=== PATIENT | female | born 1985 | race Caucasian/White ===

== ENCOUNTER → 2018-05-02 14:45 | Outpatient (CLI) | payer OTHER, SELFPAY ==
[2018-05-02 15:36] LABS: Add Manual Diff / Slide Review NO; Basophils Percent Auto 0.1 % (0-2); Eosinophils Percent Auto 0.7 % (2-4); Hematocrit 44.1 % (36-46); Hemoglobin 15.3 g/dL (12.0-16.0); Lymphocytes Percent Auto 24.4 % (25-40); Mean Corpuscular HGB Conc 34.6 % (30-36); Mean Corpuscular Hemoglobin 32.2 PG (26-34); Monocytes Percent Auto 10.2 % (3-14); Neutrophils Absolute Auto 3400 /uL (3000-5900); Neutrophils Percent Auto 64.6 % (50-75); Platelet Count 233 X10^3/uL (150-400); Red Blood Cell Count 4.75 X10^6/uL (4.0-5.2); Red Cell Distribution Width 12.4 % (11.6-14.8); White Blood Cell Count 5.3 X10^3/uL (4.5-11.0)
[2018-05-02 16:35] LABS: Alanine Aminotransferase 33 IU/L (9-52); Albumin 4.5 g/dL (3.5-5.0); Alkaline Phosphatase 62 U/L (38-126); Aspartate Aminotransferase 29 IU/L (14-36); Bilirubin Total 0.4 mg/dL (0.2-1.3); Blood Urea Nitrogen 7 mg/dL (7-17); Calcium 9.8 mg/dL (8.4-10.2); Carbon Dioxide 27 mmol/L (22-32); Chloride 99 mmol/L (98-107); Estimated Glomerular Filt Rate > 60.0 mL/min (>60); Globulin 2.2 g/dL (1.7-4.1); Glucose 111 mg/dL (70-100); HEMOLYSIS < 15 (0-50); Potassium 4.1 mmol/L (3.4-5.1); Sodium 140 mmol/L (137-145); Total Protein 6.7 g/dL (6.3-8.2)
== END ==
PROVIDERS: Family Provider Family Medicine; PCP Family Medicine; Visit Provider Family Medicine
DX: J32.4 Chronic pansinusitis (principal); E88.81 Metabolic syndrome and other insulin resistance
CPT/HCPCS: 36415; 80053; 85025

== ENCOUNTER → 2021-05-28 09:43 | Outpatient (CLI) | payer OTHER, SELFPAY ==
[2021-05-28 18:43] LABS: Appearance Urine UA CLEAR; Bilirubin Urine UA NEGATIVE (NEGATIVE); Color Urine UA YELLOW; Glucose Urine UA NEGATIVE (Negative); Ketones Urine UA NEGATIVE (NEGATIVE); Leukocyte Esterase Urine UA 2+ (NEGATIVE); Nitrite Urine UA NEGATIVE (Negative); Occult Blood Urine UA TRACE-LYSED (Negative); Protein Urine UA NEGATIVE (Negative); Specific Gravity Urine UA 1.015 (1.000-1.035); Urobilinogen Urine UA 0.2 E.U./dL (0.2)
[2021-05-28 18:45] LABS: Add Manual Diff / Slide Review NO; Basophils Absolute Auto 0 /uL (0-100); Basophils Percent Auto 0.5 % (0-2); Eosinophils Absolute Auto 100 /uL (0-450); Eosinophils Percent Auto 1.8 % (2-4); Hematocrit 42.8 % (36-46); Hemoglobin 15.1 g/dL (12.0-16.0); Lymphocytes Absolute Auto 1300 /uL (1100-4500); Lymphocytes Percent Auto 29.6 % (25-40); Mean Corpuscular HGB Conc 35.2 % (30-36); Mean Corpuscular Hemoglobin 31.7 PG (26-34); Mean Corpuscular Volume 90.1 fL (80-100); Monocytes Absolute Auto 500 /uL (0-900); Monocytes Percent Auto 10.7 % (3-14); Neutrophils Absolute Auto 2500 /uL (1500-7000); Neutrophils Percent Auto 57.4 % (50-75); Platelet Count 230 X10^3/uL (150-400); Red Blood Cell Count 4.75 X10^6/uL (4.0-5.2); Red Cell Distribution Width 12.4 % (11.6-14.8); White Blood Cell Count 4.4 X10^3/uL (4.5-11.0)
[2021-05-28 18:56] LABS: Alanine Aminotransferase 39 IU/L (<35); Albumin 4.4 g/dL (3.5-5.0); Albumin Globulin Ratio 1.8 (1.0-2.8); Alkaline Phosphatase 50 U/L (38-126); Aspartate Aminotransferase 29 IU/L (14-36); BUN Creatinine Ratio 9.2 (6-22); Bilirubin Total 0.6 mg/dL (0.2-1.3); Blood Urea Nitrogen 7 mg/dL (7-17); Calcium 10.2 mg/dL (8.4-10.2); Carbon Dioxide 26 mmol/L (22-32); Chloride 107 mmol/L (98-107); Cholesterol 238 mg/dL (140-199); Estimated Glomerular Filt Rate > 60.0 mL/min (>60); Globulin 2.4 g/dL (1.7-4.1); Glucose 97 mg/dL (70-100); HDL Cholesterol 33 mg/dL (40-60); HEMOLYSIS < 15 (0-50); LDL Cholesterol Calculated 184 mg/dL (<100); Potassium 4.5 mmol/L (3.4-5.1); Sodium 141 mmol/L (137-145); Total Protein 6.8 g/dL (6.3-8.2); Triglycerides 106 mg/dL (35-150)
[2021-05-28 18:58] LABS: Hemoglobin A1C% w Est Avg Glu 4.7 % (4.0-6.0)
[2021-05-28 18:59] LABS: Amorphous Sediment Urine 2+; Bacteria Urine None Seen; Culture Indicated Urine Specimen Cultured; RBC Urine None Seen (0-5/HPF); WBC Urine 5-10/HPF (0-5/HPF)
[2021-05-28 19:24] LABS: TSH w/ Reflex to FT4 1.47 uIU/mL (0.47-4.68)
[2021-05-28 20:05] LABS: Urine N gonorrhoeae NOT DETECTED
[2021-05-28 20:14] LABS: Urine Chlamydia NOT DETECTED
== END ==
PROVIDERS: Family Provider Family Medicine; PCP Family Medicine; Visit Provider Family Medicine
DX: Z00.00 Encounter for general adult medical examination without abnormal findings (principal); Z68.35 Body mass index [BMI] 35.0-35.9, adult; R30.0 Dysuria; Z11.3 Encounter for screening for infections with a predominantly sexual mode of transmission
CPT/HCPCS: 80053; 80061; 81001; 83036; 84443; 85025; 87086; 87491; 87591

== ENCOUNTER → 2021-08-18 11:58 | Outpatient (CLI) | payer OTHER, SELFPAY | PROVIDERS: Family Provider Family Medicine; PCP Family Medicine; Visit Provider Physician Assistant | DX: R30.0 Dysuria (principal); R35.0 Frequency of micturition; R39.15 Urgency of urination | CPT/HCPCS: 87077; 87086; 87186 ==

== ENCOUNTER → 2021-09-02 09:33 | Outpatient (CLI) | payer OTHER, SELFPAY ==
[2021-09-02 19:06] LABS: Appearance Urine UA CLEAR; Bilirubin Urine UA NEGATIVE (NEGATIVE); Color Urine UA YELLOW; Glucose Urine UA NEGATIVE (Negative); Ketones Urine UA NEGATIVE (NEGATIVE); Leukocyte Esterase Urine UA TRACE (NEGATIVE); Nitrite Urine UA NEGATIVE (Negative); Occult Blood Urine UA NEGATIVE (Negative); Protein Urine UA NEGATIVE (Negative); Urobilinogen Urine UA 0.2 E.U./dL (0.2)
[2021-09-02 19:08] LABS: pH Urine UA 7.5 (4.5-8.0)
[2021-09-02 19:10] LABS: Alanine Aminotransferase 47 IU/L (<35); Albumin 4.6 g/dL (3.5-5.0); Albumin Globulin Ratio 1.8 (1.0-2.8); Alkaline Phosphatase 50 U/L (38-126); Aspartate Aminotransferase 34 IU/L (14-36); BUN Creatinine Ratio 8.9 (6-22); Bilirubin Total 0.6 mg/dL (0.2-1.3); Blood Urea Nitrogen 7 mg/dL (7-17); Calcium 9.9 mg/dL (8.4-10.2); Carbon Dioxide 29 mmol/L (22-32); Chloride 104 mmol/L (98-107); Cholesterol 239 mg/dL (140-199); Estimated Glomerular Filt Rate > 60.0 mL/min (>60); Globulin 2.5 g/dL (1.7-4.1); Glucose 95 mg/dL (70-100); HDL Cholesterol 30 mg/dL (40-60); HEMOLYSIS < 15 (0-50); LDL Cholesterol Calculated 183 mg/dL (<100); Potassium 4.4 mmol/L (3.4-5.1); Sodium 139 mmol/L (137-145); Total Protein 7.1 g/dL (6.3-8.2); Triglycerides 132 mg/dL (35-150)
[2021-09-02 19:24] LABS: Add Manual Diff / Slide Review NO; Basophils Absolute Auto 0 /uL (0-100); Basophils Percent Auto 0.4 % (0-2); Eosinophils Absolute Auto 0 /uL (0-450); Hematocrit 44.3 % (36-46); Hemoglobin 15.8 g/dL (12.0-16.0); Lymphocytes Absolute Auto 1300 /uL (1100-4500); Lymphocytes Percent Auto 34.1 % (25-40); Mean Corpuscular HGB Conc 35.8 % (30-36); Mean Corpuscular Hemoglobin 32.3 PG (26-34); Mean Corpuscular Volume 90.2 fL (80-100); Monocytes Absolute Auto 500 /uL (0-900); Monocytes Percent Auto 12.4 % (3-14); Neutrophils Absolute Auto 2000 /uL (1500-7000); Neutrophils Percent Auto 53.1 % (50-75); Platelet Count 240 X10^3/uL (150-400); Red Blood Cell Count 4.91 X10^6/uL (4.0-5.2); Red Cell Distribution Width 12.6 % (11.6-14.8); White Blood Cell Count 3.7 X10^3/uL (4.5-11.0)
[2021-09-02 19:27] LABS: Bacteria Urine None Seen; Culture Indicated Urine Specimen Cultured; RBC Urine 0-1/HPF (0-5/HPF); WBC Urine 0-1/HPF (0-5/HPF)
[2021-09-02 19:33] LABS: TSH w/ Reflex to FT4 1.64 uIU/mL (0.47-4.68)
== END ==
PROVIDERS: Family Provider Family Medicine; PCP Family Medicine; Visit Provider Physician Assistant
DX: E78.5 Hyperlipidemia, unspecified (principal); E07.9 Disorder of thyroid, unspecified; R53.82 Chronic fatigue, unspecified; N39.0 Urinary tract infection, site not specified
CPT/HCPCS: 80053; 80061; 81001; 84443; 85025; 87086

== ENCOUNTER → 2022-02-10 13:13 | Outpatient (CLI) | payer OTHER, SELFPAY ==
[2022-02-14 08:38] LABS: Candida species Negative (Negative); Gardnerella vaginalis Negative (Negative); Trichomoas vaginalis Negative (Negative)
== END ==
PROVIDERS: Family Provider Family Medicine; PCP Physician Assistant; Visit Provider Physician Assistant
DX: R35.0 Frequency of micturition (principal); N89.8 Other specified noninflammatory disorders of vagina
CPT/HCPCS: 87077; 87086; 87186; 87480; 87491; 87510; 87563; 87591; 87660

== ENCOUNTER → 2022-04-14 12:01 | Outpatient (CLI) | payer OTHER, SELFPAY | PROVIDERS: Family Provider Family Medicine; PCP Physician Assistant; Visit Provider Physician Assistant Medical | DX: L03.039 Cellulitis of unspecified toe (principal) | CPT/HCPCS: 87070; 87075; 87205 ==

== ENCOUNTER → 2023-04-25 15:08 | Outpatient (CLI) | payer OTHER, SELFPAY | PROVIDERS: Family Provider Family Medicine; PCP Physician Assistant; Visit Provider Physician Assistant | DX: R30.0 Dysuria (principal) | CPT/HCPCS: 87086 ==

== ENCOUNTER → 2023-06-06 16:11 | Outpatient (CLI) | payer OTHER, SELFPAY ==
[2023-06-07 21:44] LABS: Respiratory Syncytial Virus NEGATIVE (Not Detect)
== END ==
PROVIDERS: Family Provider Family Medicine; PCP Physician Assistant; Visit Provider Physician Assistant
DX: Z20.828 Contact with and (suspected) exposure to other viral communicable diseases (principal); R05.9 Cough, unspecified; J02.9 Acute pharyngitis, unspecified
CPT/HCPCS: 87070; 87634

== ENCOUNTER → 2023-06-08 14:41 | Outpatient (CLI) | payer OTHER, SELFPAY ==
[2023-06-08 21:16] LABS: Add Manual Diff / Slide Review NO; Basophils Absolute Auto 0 /uL (0-100); Basophils Percent Auto 0.1 % (0-2); Eosinophils Absolute Auto 0 /uL (0-450); Eosinophils Percent Auto 0.1 % (2-4); Hematocrit 43.7 % (36-46); Hemoglobin 15.1 g/dL (12.0-16.0); Lymphocytes Absolute Auto 1200 /uL (1100-4500); Lymphocytes Percent Auto 20.6 % (25-40); Mean Corpuscular HGB Conc 34.6 % (30-36); Mean Corpuscular Hemoglobin 32.1 PG (26-34); Mean Corpuscular Volume 92.9 fL (80-100); Monocytes Absolute Auto 700 /uL (0-900); Neutrophils Absolute Auto 3800 /uL (1500-7000); Neutrophils Percent Auto 66.2 % (50-75); Platelet Count 219 X10^3/uL (150-400); Red Blood Cell Count 4.71 X10^6/uL (4.0-5.2); White Blood Cell Count 5.7 X10^3/uL (4.5-11.0)
[2023-06-08 22:12] LABS: Alanine Aminotransferase 151 IU/L (<35); Albumin 4.8 g/dL (3.5-5.0); Albumin Globulin Ratio 1.8 (1.0-2.8); Alkaline Phosphatase 70 U/L (38-126); Aspartate Aminotransferase 73 IU/L (14-36); BUN Creatinine Ratio 15.9 (6-22); Bilirubin Total 0.6 mg/dL (0.2-1.3); Blood Urea Nitrogen 11 mg/dL (7-17); Calcium 10.5 mg/dL (8.4-10.2); Carbon Dioxide 26 mmol/L (22-32); Chloride 101 mmol/L (98-107); Estimated Glomerular Filt Rate > 60 mL/min (>60); Globulin 2.7 g/dL (1.7-4.1); Glucose 98 mg/dL (70-100); HEMOLYSIS 23 (0-50); Potassium 4.2 mmol/L (3.4-5.1); Sodium 138 mmol/L (137-145); Total Protein 7.5 g/dL (6.3-8.2)
[2023-06-08 22:47] LABS: Ferritin 242 ng/mL (6-137)
[2023-06-09 19:42] LABS: Alanine Aminotransferase 148 IU/L (<35); Albumin 4.7 g/dL (3.5-5.0); Albumin Globulin Ratio 1.6 (1.0-2.8); Alkaline Phosphatase 76 U/L (38-126); Aspartate Aminotransferase 70 IU/L (14-36); Bilirubin Total 0.5 mg/dL (0.2-1.3); Bilirubin Unconjugated 0.2 mg/dL (0.0-1.1); Globulin 2.9 g/dL (1.7-4.1); HEMOLYSIS < 15 (0-50); Total Protein 7.6 g/dL (6.3-8.2)
[2023-06-09 20:13] LABS: TSH w/ Reflex to FT4 2.35 uIU/mL (0.47-4.68)
[2023-06-12 18:19] LABS: HIV 1 & 2 Ab/Ag 4th Gen Combo NEGATIVE (NEGATIVE)
== END ==
PROVIDERS: Family Provider Family Medicine; PCP Physician Assistant; Visit Provider Family Medicine
DX: Z11.4 Encounter for screening for human immunodeficiency virus [HIV] (principal); R79.89 Other specified abnormal findings of blood chemistry; R79.0 Abnormal level of blood mineral; E07.9 Disorder of thyroid, unspecified; R74.8 Abnormal levels of other serum enzymes; E78.00 Pure hypercholesterolemia, unspecified
CPT/HCPCS: 80053; 80076; 82728; 84443; 85025; 87389

== ENCOUNTER 2023-11-13 11:15 | Emergency (ER) | payer OTHER, SELFPAY ==
[2023-11-13 11:47] VITALS: BP 146/91; PULSE 106; RESP 18; TEMP 36.3; O2SAT 98; BMI 37.1
[2023-11-13 12:56] VITALS: BP 150/94; PULSE 99; RESP 20; O2SAT 98
--- NOTE | 2023-11-13 18:12 | ED.URI ---
HPI - URI/Sore Throat <Darian Valles PA-C - Last Filed: 11/14/23 14:59> General Chief Complaint: Upper Respiratory Symptoms Stated Complaint: Sore throat, Cough Time Seen by Provider: 11/13/23 12:05 Source: patient Mode of arrival: Ambulatory History of Present Illness HPI Narrative: 37-year-old female presents to the ED with 1 week of URI symptoms. Patient complains of a low-grade fever, T-max 99? F, cough, sore throat, ear congestion, sinus congestion. No chest pain, shortness of breath. Patient states she had pneumonia earlier this year and took antibiotics for it. 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 Related Data Home Medications Medication Instructions Recorded Confirmed melatonin 10 mg tablet 10 mg PO BEDTIME PRN 08/18/21 09/27/23 levonorgestrel 17.5 mcg/24 hrs intrauterine 09/01/21 09/27/23 (5yrs) 19.5mg intrauterine device (Kyleena) Previous Rx's Medication Instructions Recorded mupirocin 2 % topical ointment 1 applic topical TID #22 grams 04/14/22 lisinopril 10 mg tablet 10 mg PO DAILY #30 tabs 04/25/23 albuterol sulfate 90 mcg/actuation See Rx Instructions inhalation 06/06/23 aerosol inhaler Q4-6H PRN shortness of breath or wheezing #8.5 grams fluticasone 250 mcg-salmeterol 50 1 inh inhalation BID #60 ea 06/06/23 mcg/dose blistr powdr for inhalation (Advair Diskus) montelukast 10 mg tablet 10 mg PO DAILY #30 tabs 10/16/23 benzonatate 200 mg capsule 200 mg PO TID PRN cough #30 caps 11/13/23 polymyxin B sulfate 10,000 2 drp EYE-BOTH Q6HR 7 days #10 mL 11/13/23 unit-trimethoprim 1 mg/mL eye drops Allergies Allergy/AdvReac Type Severity Reaction Status Date / Time pollen extracts Allergy Unknown Verified 11/13/23 11:47 promethazine [From Phenergan] Allergy Unknown Hallucinati Verified 11/13/23 11:47 ng povidone-iodine AdvReac Mild SKIN: RASH Verified 11/13/23 11:47 TREE EXTRACT Allergy Unknown Uncoded 09/27/23 11:05 gramineae pollens AdvReac Unknown SKIN: Uncoded 11/13/23 11:47 RASH, ITCHING SHELLFISH ALLERGY AdvReac Unknown NAUSEA AND Uncoded 11/13/23 11:47 VOMITING SHELLFISH- DERIVED PRODUCTS AdvReac Unknown NAUSEA AND Uncoded 11/13/23 11:47 VOMITING Review of Systems <Darian Valles PA-C - Last Filed: 11/14/23 14:59> Constitutional Constitutional: Denies chills, Denies fatigue, Reports fever(s), Denies frequent falls, Denies lethargy and Denies weakness Eyes Eyes: Denies change in vision, Denies eye discharge, Denies irritation and Denies loss of vision ENT Ears, Nose, Mouth, and Throat: Denies change in voice, Denies dizziness, Denies neck pain, Reports sinus pain, Reports sinus pressure, Denies sore throat and Denies throat swelling Comments: Bilateral ear fullness Cardiovascular Cardiovascular: Denies chest pain, Denies irregular heart rhythm, Denies lightheadedness, Denies palpitations, Denies dyspnea, Denies dyspnea on exertion and Denies orthopnea Respiratory Respiratory: Reports cough, Denies dyspnea, Denies dyspnea on exertion and Denies wheezing Gastrointestinal Gastrointestinal: Denies abdominal pain, Denies change in bowel habits, Denies diarrhea, Denies nausea and Denies vomiting Musculoskeletal Musculoskeletal: Denies neck pain and Denies numbness Integumentary/Breasts Skin/Breast: Denies pruritus, Denies erythema, Denies rash and Denies wounds Neurologic Neurologic: Denies behavioral changes, Denies confusion, Denies dizziness, Denies frequent falls, Denies loss of vision, Denies numbness and Denies weakness Psychiatric Psychiatric: Denies anxiety, Denies behavioral changes, Denies confusion, Denies depression, Denies homicidal ideation and Denies suicidal ideation Endocrine Endocrine: Denies fatigue, Denies flushing and Denies palpitations Hematologic/Lymphatic Hematologic/Lymphatic: Denies easy bruising Allergic/Immunologic Allergic/Immunologic: Denies urticaria, Denies throat swelling and Denies wheezing Patient History <Darian Valles PA-C - Last Filed: 11/14/23 14:59> Medical History Ruptured ovarian cyst (~2014) Endometriosis (~12/2015) Endometrioma of ovary (~01/01/16) Acute recurrent sinusitis, unspecified Acute URI PCOS (polycystic ovarian syndrome) Screening cholesterol level Routine general medical examination at health care facility Primary insomnia Obesity (BMI 30.0-34.9) (~11/10/15) Migraine headache Chronic daily headache (~1993) Narcolepsy Fibromyalgia Excessive daytime sleepiness Surgical History Fibroid, uterine Endometriosis determined by laparoscopy Social History marital status: unmarried,single details: lives on [facility], near parents and BF who has children. occupational status: employed Smoking Status: Never smoker Smoking Status: Never smoker alcohol intake frequency: 0-2 drinks per day Substance Use Type: does not use Exam <Darian Valles PA-C - Last Filed: 11/14/23 14:59> Narrative Exam Narrative: Const General:?cooperative, healthy appearing and comfortable [facility] Head:?normal to inspection Ears:?hearing grossly normal bilaterally; tympani bilaterally normal; external ear canals normal bilaterally Nose:?external nose normal Face and sinus:?normal facial exam and sinuses nontender Mouth:?oral mucosae normal Throat:?posterior oropharynx normal Eyes General:?appearance normal, both eyes and all related structures Neck Neck:?normal visual inspection and no lymphadenopathy noted Resp Effort & Inspection:?normal respiratory effort Auscultation:?clear to auscultation bilaterally Cardio Rate:?regular rate Rhythm:?regular rhythm Neuro General:?patient alert, patient awake and patient oriented x3 Initial Vital Signs Initial Vital Signs: Vital Signs Temperature 97.3 F L 11/13/23 11:47 Pulse Rate 106 H 11/13/23 11:47 Respiratory Rate 18 11/13/23 11:47 Blood Pressure 146/91 H 11/13/23 11:47 Pulse Oximetry 98 11/13/23 11:47 Oxygen Delivery Method Room Air 11/13/23 11:47 <Emilie Lerma MD - Last Filed: 11/14/23 16:01> Initial Vital Signs Initial Vital Signs: Vital Signs Temperature 97.3 F L 11/13/23 11:47 Pulse Rate 106 H 11/13/23 11:47 Respiratory Rate 18 11/13/23 11:47 Blood Pressure 146/91 H 11/13/23 11:47 Pulse Oximetry 98 11/13/23 11:47 Oxygen Delivery Method Room Air 11/13/23 11:47 Course <Darian Valles PA-C - Last Filed: 11/14/23 14:59> Vital Signs Vital signs: Vital Signs - 8 hr 11/13/23 11:47 11/13/23 12:56 Temperature 97.3 F L Pulse Rate 106 H 99 H Respiratory Rate 18 20 Blood Pressure 146/91 H 150/94 H Pulse Oximetry 98 98 Oxygen Delivery Method Room Air Room Air <Emilie Lerma MD - Last Filed: 11/14/23 16:01> Vital Signs Vital signs: Vital Signs - 8 hr 11/13/23 11:47 11/13/23 12:56 Temperature 97.3 F L Pulse Rate 106 H 99 H Respiratory Rate 18 20 Blood Pressure 146/91 H 150/94 H Pulse Oximetry 98 98 Oxygen Delivery Method Room Air Room Air MDM - URI/Sore Throat <Darian Valles PA-C - Last Filed: 11/14/23 14:59> MDM Narrative Medical decision making narrative: 37-year-old female presents to the ED with 1 week of URI symptoms. Physical exam is reassuring, no signs of bacterial infection. Lungs clear to auscultation bilaterally. No indication for further imaging or testing. Patient's symptoms consistent with a viral URI and bacterial conjunctivitis. Prescribed antibiotics eyedrops, Tessalon Perles. Recommend patient take lygi-kqm-iitlizz cough and cold remedies, consume plenty of water. Also recommend Flonase for ear congestion. Recommend follow-up with PCP. ED return precautions discussed with patient. Patient verbalized understanding. Medical records reviewed: Yes Discharge Plan Departure Patient Disposition: Home Clinical Impression: Upper respiratory infection Qualifiers: URI type: unspecified URI Qualified Code(s): J06.9 - Acute upper respiratory infection, unspecified Conjunctivitis Qualifiers: Conjunctivitis type: unspecified Laterality: bilateral Qualified Code(s): H10.9 - Unspecified conjunctivitis Instructions: DI for Conjunctivitis, DI for Viral Upper Respiratory Infection -- Adult Activity Restrictions/Additional Instructions: You were evaluated in the ED today for a sore throat, cough, congestion. Your symptoms are consistent with a viral upper respiratory infection and conjunctivitis. You are being prescribed Tessalon Perles for your cough, antibiotic eyedrops for the eyes. You may continue taking Flonase for the ear fullness. You may also take other [id number] medications for symptom relief. Return to the ED if you experience worsening symptoms, chest pain, shortness of breath. Prescriptions: New polymyxin B sulf-trimethoprim 10,000 unit- 1 mg/mL drops 2 drp EYE-BOTH Q6HR 7 Days Qty: 10 0RF benzonatate 200 mg capsule 200 mg PO TID PRN (Reason: cough) Qty: 30 0RF No Action montelukast 10 mg tablet 10 mg PO DAILY Qty: 30 1RF Kyleena 17.5 mcg/24 hrs (5 yrs) 19.5 mg intrauterine device intrauterine lisinopril 10 mg tablet 10 mg PO DAILY Qty: 30 3RF fluticasone propion-salmeterol [Advair Diskus] 250-50 mcg/dose blister with device 1 inh inhalation BID Qty: 60 4RF albuterol sulfate 90 mcg/actuation HFA aerosol inhaler See Rx Instructions inhalation Q4-6H PRN (Reason: shortness of breath or wheezing) Qty: 8.5 4RF Rx Instructions: 1 to 2 puffs inhaled every 4-6 hours PRN; melatonin 10 mg tablet 10 mg PO BEDTIME PRN mupirocin 2 % ointment 1 applic topical TID Qty: 22 0RF Referrals: Micki Lindsay PA-C [Primary Care Provider] - Stand Alone Forms: Patient Portal/API ED Sign-out <Emilie Lerma MD - Last Filed: 11/14/23 16:01> Cosign ED Attending Paulino Attestation: I was immediately available in the department for consultation throughout this patient's visit. Emilie Lerma MD
== END 2023-11-13 12:57 | disposition home or self-care (01) ==
PROVIDERS: Emergency Provider Student in an Organized Health Care Education/Training Program; Family Provider Family Medicine; PCP Physician Assistant
DX: J06.9 Acute upper respiratory infection, unspecified (principal); H10.89 Other conjunctivitis
CPT/HCPCS: 99281; 99283

== ENCOUNTER → 2024-07-09 13:20 | Outpatient (CLI) | payer OTHER, SELFPAY ==
--- NOTE | 2024-07-09 13:21 | DI.MG.S_ITS ---
BILATERAL DIGITAL SCREENING MAMMOGRAM 3D/2D WITH CAD: 07/09/2024 CLINICAL: Baseline exam. Routine screening. No prior exams were available for comparison. The breasts are heterogeneously dense, which may obscure small masses (category c / 51-75% glandular tissue). Current study was also evaluated with a Computer Aided Detection (CAD) system. No significant masses, calcifications, or other findings are seen in either breast. IMPRESSION: NEGATIVE There is no mammographic evidence of malignancy. A 1 year screening mammogram is recommended. Based on the Tyrer Cuzick model (a risk assessment model) the patient's lifetime risk is 14.1% and her 10 year risk is 1.8%. According to the ACR, ACS, and NCCN guidelines, an annual breast MRI exam along with mammogram is recommended if the patient's lifetime risk is 20% or greater. This exam was interpreted at Station ID: [id number]. NOTE: For mammograms, a report in lay terms will be sent to the patient. Approximately 15% of breast malignancies will not be visualized mammographically. In the management of a palpable breast mass, a negative mammogram must not discourage biopsy of a clinically suspicious lesion. Electronically Signed By: Omari crandall/christina:07/09/2024 15:54:31 letter sent: Normal Exam ACR BI-RADS Category 1: Negative
== END ==
PROVIDERS: Family Provider Family Medicine; PCP Family Medicine; Referring Provider Family Medicine; Visit Provider Family Medicine
DX: Z12.31 Encounter for screening mammogram for malignant neoplasm of breast (principal); R92.333 Mammographic heterogeneous density, bilateral breasts
CPT/HCPCS: 77063; 77067

== ENCOUNTER → 2024-09-03 13:58 | Outpatient (CLI) | payer BC, SELFPAY ==
--- NOTE | 2024-09-03 14:01 | DI.US.S_ITS ---
PROCEDURE: US PELVIC COMPLETE INDICATIONS: IRREGULAR PERIODS TECHNIQUE: Real-time scanning was performed of the pelvic organs, with image documentation. Additional endovaginal scanning was necessary due to incomplete visualization of the adnexal and endometrial structures by transabdominal scanning. COMPARISON: None. FINDINGS: Uterus: Uterus is anteverted and normal in size at 8.0 x 5.0 x 4 point cm. The myometrium is homogeneous. The endometrium measures 5.7 mm combined thickness. IUD is present in appropriate location. Mild heterogeneous appearance of endometrium. Complex cervical focus without increased vascularity measuring 1.2 cm. Ovaries: The right ovary measures 5.6 x 2.9 x 3.0 cm, with a calculated ovarian volume of 25 cc. The left ovary measures 2.8 x 2.3 x 1.7 cm, with a calculated ovarian volume of 6 cc. Complex cystic structure in the right ovary measuring 2.9 x 2.5 x 2.7 cm as well as a 2nd focus measuring 1.3 x 0.9 x 0.9 cm. Other: No pathologic free abdominal or pelvic fluid. IMPRESSION: Suspected hemorrhagic right ovarian cyst. Complex focus within the cervix suspected to represent nabothian cysts. However, recommend 6 week interval follow-up. We strive to produce accurate, complete, and clear reports of imaging services. To assist us in improving patient care, this report was composed using standard report templates and voice recognition software. Therefore, it may contain abnormal punctuation, insertions and/or omissions. Occasional wrong-word or sound-alike substitutions may occur. Though we review the report and make efforts to correct it, we do recommend that the report be read carefully in proper context to recognize any text inaccuracies. Dictated by: Bridgette Muniz M.D. on 09/03/2024 at 17:38 Approved by: Bridgette Muniz M.D. on 09/03/2024 at 17:44
== END ==
PROVIDERS: Family Provider Family Medicine; PCP Family Medicine; Referring Provider Family Medicine; Visit Provider Family Medicine
DX: N92.6 Irregular menstruation, unspecified (principal); R10.2 Pelvic and perineal pain
CPT/HCPCS: 76830; 76856